=== PATIENT | female | born 1985 | race African-American/Black ===

== ENCOUNTER 2019-10-13 12:21 | Emergency (ER) | payer OTHER ==
[~2019-10-13] VITALS: Ht 167.6 cm; Wt 104.3 kg
[~2019-10-13 12:21] MED LIST: CYCLOBENZAPRINE10 MG PO; NOHOMEMEDICATIONS; ULTRAM 50MG TAB50 MG PO
[2019-10-13] MEDS ORDERED: LEXAPRO5 MG PO (12:45)
[2019-10-13] MEDS ORDERED: NAPROSYN500 MG PO (14:04)
[2019-10-13] MEDS ORDERED: APAP W/CODEINE1 TA2 PO (14:04)
[2019-10-13 14:31] VITALS: BP 125/73
== END 2019-10-13 14:31 | disposition home or self-care (01) ==
LOC: ER 12:21
DX: S91.202A Unspecified open wound of left great toe with damage to nail, initial encounter (principal); Z79.899 Other long term (current) drug therapy; Z88.8 Allergy status to other drugs, medicaments and biological substances; W22.8XXA Striking against or struck by other objects, initial encounter; Y93.89 Activity, other specified; Y92.89 Other specified places as the place of occurrence of the external cause; Y99.8 Other external cause status